=== PATIENT | male | born 1935 | race Caucasian/White ===

== ENCOUNTER 2017-10-26 23:18 | Inpatient (IN) | payer OTHER ==
[~2017-10-26] VITALS: Ht 180.3 cm; Wt 128.4 kg
[~2017-10-26 23:18] MED LIST: ADVAIR 100/501 DISK IH; ATENOLOL50 MG PO; ATORVASTATIN CA20 MG PO; BACTRIM,SEPT1 TABLE1 PO; COUMADIN5 MG PO; CYANOCOBALAM1000 MCG PO; FLOMAX0.4 MG PO; FUROSEMIDE40 MG PO; IBUPROFEN800 MG PO; K-DUR20 MEQ PO; LO-DOSE ASPIRIN81 M2 PO; MULTAQ400 MG PO; NEXIUM40 MG PO
[2017-10-26 23:52] LABS: HEMATOCRIT 30.7 % (38.0-50.0); MCH 31.8 PG (29.0-34.0); MCHC 32.6 G/DL (30.0-36.0); MCV 97.8 FL (86-99); PLATELET COUNT 150 K/uL (156-360); RBC DIS.WIDTH-CV 15.1 % (11.8-14.6); RBC DIS.WIDTH-SD 54.3 % (39-53); RED BLOOD COUNT 3.14 M/uL (4.00-5.50); WHITE BLOOD COUNT 6.3 K/uL (4.1-10.2)
[2017-10-27 00:02] LABS: CHLORIDE 110 mEq/L (99-109); POTASSIUM 4.4 mEq/L (3.7-5.4); SODIUM 143 mEq/L (136-147)
[2017-10-27 00:04] LABS: GLUCOSE 169 mg/dL (70-99)
[2017-10-27 00:08] LABS: CREATININE 1.4 mg/dL (0.6-1.3); GFR ESTIMATE (CALCULATED) 51 mL/min/ (58.99-99999)
[2017-10-27 00:09] LABS: UREA NITROGEN (BUN) 66 mg/dL (9-23)
[2017-10-27 00:21] LABS: ALBUMIN 2.7 g/dL (3.2-4.8)
[2017-10-27 00:22] LABS: PTT 42.6 SEC (25-37)
[2017-10-27 00:23] LABS: TOTAL PROTEIN 4.5 g/dL (6.4-8.3)
[2017-10-27 00:25] LABS: TOTAL BILIRUBIN 0.3 mg/dL (0.0-1.0)
[2017-10-27 00:26] LABS: ALKALINE PHOSPHATASE 59 IU/L (3-129)
[2017-10-27 00:29] LABS: ALT (GPT) 12 IU/L (3-49); AST (GOT) 13 IU/L (2-34); DIRECT BILIRUBIN 0.1 mg/dL (0.0-0.3)
[2017-10-27 00:30] LABS: INTER. NORMALIZED RATIO 5.7; LIPASE 32 U/L (1.0-51.0)
[2017-10-27 00:34] LABS: TROP-I INTERPRETATION NEGATIVE; TROPONIN-I < 0.01 ng/mL (0.0-0.30)
[2017-10-27] MEDS ORDERED: TRAMADOL HCL50 MG PO (02:15)
[2017-10-27] MEDS ORDERED: DONEPEZIL HCL5 MG PO (02:15)
[2017-10-27] MEDS ORDERED: ATENOLOL25 MG PO (02:15)
[2017-10-27] MEDS ORDERED: ASCORBIC ACID500 M3 PO (02:16)
[2017-10-27] MEDS ORDERED: DOXYCYCLINE HY100 M3 PO (02:17)
[2017-10-27 06:17] VITALS: BP 125/90
[2017-10-27 07:48] VITALS: BP 130/66
[2017-10-27 11:42] LABS: HEMATOCRIT 27.3 % (38.0-50.0); HEMOGLOBIN 8.8 G/DL (12.5-16.6); MCH 31.8 PG (29.0-34.0); MCHC 32.2 G/DL (30.0-36.0); MCV 98.6 FL (86-99); PLATELET COUNT 138 K/uL (156-360); RBC DIS.WIDTH-CV 15.2 % (11.8-14.6); RBC DIS.WIDTH-SD 54.6 % (39-53); RED BLOOD COUNT 2.77 M/uL (4.00-5.50); WHITE BLOOD COUNT 6.4 K/uL (4.1-10.2)
[2017-10-27 11:58] LABS: INTER. NORMALIZED RATIO 1.9
[2017-10-27 12:14] VITALS: BP 136/60
[2017-10-27 14:34] LABS: HEMATOCRIT 27.1 % (38.0-50.0); HEMOGLOBIN 8.9 G/DL (12.5-16.6); MCH 32.2 PG (29.0-34.0); MCHC 32.8 G/DL (30.0-36.0); MCV 98.2 FL (86-99); PLATELET COUNT 141 K/uL (156-360); RBC DIS.WIDTH-CV 15.4 % (11.8-14.6); RBC DIS.WIDTH-SD 55.1 % (39-53); RED BLOOD COUNT 2.76 M/uL (4.00-5.50); WHITE BLOOD COUNT 7.3 K/uL (4.1-10.2)
[2017-10-27 14:49] VITALS: BP 114/71
[2017-10-27 16:11] LABS: BASOPHIL (%) 0.4 % (0-1); EOSINOPHIL (%) 1.2 % (0-5); EOSINOPHIL COUNT 0.1 K/uL (0-0.3); HEMATOCRIT 26.1 % (38.0-50.0); HEMOGLOBIN 8.3 G/DL (12.5-16.6); IMMATURE GRANULOCYTE (%) 0.3 % (0.0-0.7); LYMPHOCYTE (%) 19.2 % (15-42); LYMPHOCYTE COUNT 1.5 K/uL (1.0-2.8); MCH 31.4 PG (29.0-34.0); MCHC 31.8 G/DL (30.0-36.0); MCV 98.9 FL (86-99); MONOCYTE COUNT 0.8 K/uL (0-0.8); NEUTROPHIL (%) 68.9 % (45-76); NEUTROPHIL COUNT 5.3 K/uL (1.8-6.4); PLATELET COUNT 142 K/uL (156-360); RBC DIS.WIDTH-CV 15.4 % (11.8-14.6); RBC DIS.WIDTH-SD 55.6 % (39-53); RED BLOOD COUNT 2.64 M/uL (4.00-5.50); WHITE BLOOD COUNT 7.6 K/uL (4.1-10.2)
[2017-10-27 19:14] VITALS: BP 119/57
[2017-10-27 23:17] VITALS: BP 120/55
[2017-10-28] VITALS (18 sets, daily range): BP systolic 102–140; BP diastolic 51–77
[2017-10-28 07:06] LABS: BASOPHIL (%) 0.4 % (0-1); EOSINOPHIL (%) 1.9 % (0-5); EOSINOPHIL COUNT 0.1 K/uL (0-0.3); HEMATOCRIT 28.1 % (38.0-50.0); IMMATURE GRANULOCYTE (%) 0.6 % (0.0-0.7); LYMPHOCYTE (%) 14.6 % (15-42); MCH 30.1 PG (29.0-34.0); MONOCYTE (%) 9.5 % (3-12); MONOCYTE COUNT 0.7 K/uL (0-0.8); PLATELET COUNT 125 K/uL (156-360); RBC DIS.WIDTH-CV 16.7 % (11.8-14.6); RBC DIS.WIDTH-SD 57.5 % (39-53); RED BLOOD COUNT 2.99 M/uL (4.00-5.50); WHITE BLOOD COUNT 6.9 K/uL (4.1-10.2)
[2017-10-28 07:24] LABS: CHLORIDE 113 MEQ/L (99-109); CREATININE 1.4 MG/DL (0.6-1.3); GFR ESTIMATE (CALCULATED) 51 mL/min/ (58.99-99999); GLUCOSE 141 mg/dL (70-99); POTASSIUM 3.9 MEQ/L (3.7-5.4); SODIUM 144 MEQ/L (136-147); UREA NITROGEN (BUN) 47 mg/dL (9-23)
[2017-10-28 07:40] LABS: INTER. NORMALIZED RATIO 1.3
[2017-10-28 15:43] LABS: HEMATOCRIT 27.1 % (38.0-50.0); HEMOGLOBIN 8.9 G/DL (12.5-16.6); MCV 96.4 FL (86-99)
[2017-10-29 03:13] VITALS: BP 111/59
[2017-10-29 06:37] LABS: INTER. NORMALIZED RATIO 1.1
[2017-10-29 06:56] LABS: HEMATOCRIT 34.9 % (38.0-50.0)
[2017-10-29 07:49] VITALS: BP 121/69
[2017-10-29] MEDS ORDERED: PANTOPRAZOLE SO40 MG PO (09:18)
== END 2017-10-29 12:20 | disposition home or self-care (01) | DRG 378 ==
LOC: EME → EDBD 23:18 → 2EAST 10-27 03:57 → EDOF 10-27 03:57 → ENRESERV 10-27 03:58 → 2EAST 10-27 06:00
PROVIDERS: Hospitalist; Internal Medicine Gastroenterology; Student in an Organized Health Care Education/Training Program
PROC: 30233P1 Transfusion of Nonautologous Frozen Red Cells into Peripheral Vein, Percutaneous Approach (ICD-10-PCS; principal; 2017-10-27)
PROC: 0DJ08ZZ Inspection of Upper Intestinal Tract, Via Natural or Artificial Opening Endoscopic (ICD-10-PCS; 2017-10-28)
DX: K29.61 Other gastritis with bleeding (principal); I13.0 Hypertensive heart and chronic kidney disease with heart failure and stage 1 through stage 4 chronic kidney disease, or unspecified chronic kidney disease; E66.9 Obesity, unspecified; Z68.39 Body mass index [BMI] 39.0-39.9, adult; I48.91 Unspecified atrial fibrillation; Z66 Do not resuscitate; Z79.01 Long term (current) use of anticoagulants; K21.9 Gastro-esophageal reflux disease without esophagitis; G47.33 Obstructive sleep apnea (adult) (pediatric); N40.0 Benign prostatic hyperplasia without lower urinary tract symptoms; Z96.641 Presence of right artificial hip joint; Z98.1 Arthrodesis status; E78.5 Hyperlipidemia, unspecified; D68.32 Hemorrhagic disorder due to extrinsic circulating anticoagulants; T45.515A Adverse effect of anticoagulants, initial encounter; N18.3 Chronic kidney disease, stage 3 (moderate); I50.9 Heart failure, unspecified; Z86.73 Personal history of transient ischemic attack (TIA), and cerebral infarction without residual deficits
CPT/HCPCS: 71010; 80048; 80076; 83690; 84484; 85014; 85018; 85025; 85025 91; 85027; 85610; 85730; 86850; 86900; 86901; 86920; 87338; 90686; 93005; 94640; 94640 76; 99281; 99285; C9113; J1940; J3430; J7030; J7050; P9016; S0028